=== PATIENT | female | born 1995 | race African-American/Black ===

== ENCOUNTER 2019-09-02 11:23 | Emergency (ER) | payer BC, SELFPAY ==
[2019-09-02 11:44] VITALS: BP 131/75; PULSE 87; RESP 16; TEMP 37.1; O2SAT 100
--- NOTE | 2019-09-02 11:48 | ED.GENADULT ---
HPI - General Adult General Chief complaint: Upper Respiratory Infection Stated complaint: sore throat/cough Time Seen by Provider: 09/02/19 11:50 Source: patient and RN notes reviewed Mode of arrival: ambulatory Limitations: no limitations History of Present Illness HPI narrative: This is a 24 years old female presents to the office for an evaluation of sore throat for a few days. Associated with cough and stuffy nose. Denies fever, abdominal pain, vomiting. She also stated that her coworker had positive COVID on 08/24; however she was never in close contact with the positive person except she is working in the same building. She works at [employer]. Related Data Allergies Allergy/AdvReac Type Severity Reaction Status Date / Time No Known Allergies Allergy Verified 09/02/19 11:50 Review of Systems Review of Systems: Narrative: CONSTITUTIONAL: Denies fever ENT: Denies ears pain. Reports stuffy nose and sore throat. CARDIOVASCULAR: Denies chest pain RESPIRATORY: Denies dyspnea. Reports cough GASTROINTESTINAL: Denies abdominal pain, nausea, vomiting SKIN: Denies rash MUSCULOSKELETAL: Denies acute back pain NEUROLOGIC: Denies lightheaded PMFSH Social History Social History Smoking status: Never smoker Comments At time of signature, I agree with nursing past medical, surgical, social and family history. There is no relevant family history pertinent to the presenting complaint. Exam Narrative: Exam Narrative: GENERAL: This is a well-nourished, well-developed patient, in no apparent distress. EYES: Sclera clear/white. Vision is grossly intact. EARS: External ears normal, auditory canals clear and without drainage, TMs normal without perforation. Hearing grossly intact. NOSE: External nose normal with no obvious nasal discharge, nares without redness, no rhinorrhea. THROAT: Mucous membranes moist, posterior pharynx clear. NECK: Neck supple, non-tender without lymphadenopathy, masses or thyromegaly. CARDIOVASCULAR: Regular rate and rhythm without murmurs, gallops, or rubs. RESPIRATORY: Clear to auscultation. Breath sounds equal bilaterally. No wheezes, rales, or rhonchi. GASTROINTESTINAL: Abdomen soft, non-tender, nondistended. Bowel sounds are active. No guarding. SKIN: warm, intact with no suspicious lesions or rash, good texture and turgor. NEURO: awake, alert, and oriented to person, place and time. There were no obvious focal neurologic abnormalities. Steady gait [place] Coma Scale Eye Opening: Spontaneous 4 Jim Coma Scale Motor: Obeys Commands 6 Jim Coma Scale Verbal: Oriented 5 Course Vital Signs Vital signs: Vital Signs Temperature 98.8 F 09/02/19 11:44 Pulse Rate 87 09/02/19 11:44 Respiratory Rate 16 09/02/19 11:44 Blood Pressure 131/75 09/02/19 11:44 Pulse Oximetry 100 09/02/19 11:44 Temperature 98.8 F 09/02/19 11:44 Pulse Rate 87 09/02/19 11:44 Respiratory Rate 16 09/02/19 11:44 Blood Pressure 131/75 09/02/19 11:44 Pulse Oximetry 100 09/02/19 11:44 Medical Decision Making MDM Narrative Medical decision making narrative: Patient got approved for COVID testing per [facility], discussed treatment and precaution plan with patient regarding her Covid testing. Discharge instructions reviewed with patient, as well as provided in writing per nursing staff. The instructions also include specific and strict return/GO TO THE ER as well as f/u information. All questions have been answered, and the patient deny any further questions with discharge and discharge plan. Differential Diagnosis Differential Diagnosis: pneumonia, Allergic Rhinitis, Upper respiratory cough syndrome, Pharyngitis, Sinusitis, Bronchitis, otitis media, viral URI, COVID, influenza Vital Signs Vital Signs: Vital Signs Temperature 98.8 F 09/02/19 11:44 Pulse Rate 87 09/02/19 11:44 Respiratory Rate 16 09/02/19
--- NOTE | 2019-09-17 13:15 | PC.NURSE ---
1313- Pt came in [facility] because she could not get a return to work note stating that she was symptoms free and could return to work. Pt was seen on September 02, 2019 and was advised to go for COVID19 testing, had paperwork and was prescribed Amoxil. Pt did not follow up. Pt still had her testing paperwork in hand and was instructed to go to a testing facility and have a test performed.
== END 2019-09-02 12:06 | disposition home or self-care (01) ==
PROVIDERS: Emergency Provider Nurse Practitioner
DX: J02.0 Streptococcal pharyngitis (principal)
CPT/HCPCS: 87880; 99203; G0463